=== PATIENT | female | born 1985 | race Caucasian/White ===

== ENCOUNTER 2019-12-07 15:52 | Outpatient (CLI) | payer OTHER, SELFPAY ==
[2019-12-10 16:44] LABS: DHEA-Sulfate 42 mcg/dL (23-266)
[2019-12-11 00:48] LABS: Testosterone Total 33 ng/dL (2-45)
[2019-12-11 06:58] LABS: FSH 1.2 mIU/mL (***); LH 0.8 mIU/mL (***); Progesterone <0.2 ng/mL (***); Prolactin 23.1 ng/mL (***)
[2019-12-13 20:18] LABS: Estradiol, Ultrasensitive 486 pg/mL
== END 2019-12-07 15:53 | disposition home or self-care (01) ==
LOC: ANHLAB 16:00
PROVIDERS: PCP Emergency Medicine; Visit Provider Obstetrics & Gynecology
DX: N93.9 Abnormal uterine and vaginal bleeding, unspecified (principal)
CPT/HCPCS: 36415; 82627; 82670; 83001; 83002; 84144; 84146; 84403; 84443

== ENCOUNTER → 2020-05-14 01:10 | Outpatient (CLI) | payer OTHER, SELFPAY ==
[2020-05-14 19:13] LABS: SARS-CoV-2 RNA PCR Negative
== END ==
PROVIDERS: PCP Emergency Medicine; Visit Provider Obstetrics & Gynecology
DX: Z01.812 Encounter for preprocedural laboratory examination (principal); Z20.822 Contact with and (suspected) exposure to COVID-19
CPT/HCPCS: C9803; U0003; U0005

== ENCOUNTER 2020-05-17 00:16 | Day surgery (SDC) | payer OTHER, SELFPAY ==
[2020-05-05 12:27] VITALS: BMI 39.9
[2020-05-17] VITALS (7 sets, daily range): BP systolic 125–146; BP diastolic 76–108; PULSE 75–93; RESP 14–20; TEMP 36.3; O2SAT 98–100
[2020-05-17] MEDS: ACETAMINOPHEN 500 MG TABLET 1000 MG PO (07:19)
[2020-05-17] MEDS: KETOROLAC 15 MG/ML VIAL (*BKC) IV PUSH (07:20)
[2020-05-17] MEDS: LACTATED RINGERS 1,000 ML 30 ML IV CONT (07:25)
--- NOTE | 2020-05-17 07:54 | P.PNAN_ITS ---
Anes - Initial Pre Proc Eval Procedure: Operation Date: 05/17/20 08:30 Proposed Procedures p Hysteroscopy With Endometrial Biopsy, Polypectomy, Crystal Endometrial Ablation - Rita Christensen MD s Laparoscopic Bilateral Tubal Sterilization with Cautery - Rita Christensen MD Date/Time: 05/17/20 07:54 Surgeon: Rita Christensen MD Pre Op Diagnosis: Lesion Of Endometrium, sterilization Patient Data Age: 35 Gender: F Height: 5 ft 2 in Weight: 99 kg Allergies Allergy/AdvReac Type Severity Reaction Status Date / Time erythromycin base Allergy Blurry Verified 05/17/20 07:51 Vision Home Medications Medication Instructions Recorded Confirmed Type alprazolam 0.25 mg PO PRN PRN 05/05/20 05/17/20 History buspirone 5 mg PO BID 05/05/20 05/17/20 History cholecalciferol (vitamin D3) 125 mcg PO DAILY 05/05/20 05/17/20 History [Vitamin D3] lisinopril 10 mg PO DAILY 05/05/20 05/17/20 History omega-3 fatty acids-vitamin E 1 cap PO DAILY 05/05/20 05/17/20 History [Downey-3 Fish Oil] omeprazole magnesium [Prilosec OTC] 20 mg PO DAILY PRN 05/05/20 05/17/20 History propranolol 10 mg PO BID 05/05/20 05/17/20 History triamterene-hydrochlorothiazid 1 cap PO DAILY 05/05/20 05/17/20 History vitamin E 400 unit PO DAILY 05/05/20 05/17/20 History Patient hx anesthesia problems: none Family hx anesthesia problems: none [facility] Past Medical History Medical History (Updated 05/17/20 @ 07:55 by Jean Echols MD) HTN (hypertension) Hyperlipidemia Morbid obesity Surgical History Surgical History (Updated 05/17/20 @ 07:55 by Jean Echols MD) History of cholecystectomy Social History Social History Smoking status: Never smoker Alcohol intake: current Alcohol use details: SOCIAL - ONE/MONTH Substance use: never Substance use type: does not use Living arrangements: with family Spiritual care concerns: No Anes - Eval Final PreProcedure Day of Procedure 05/17/20 07:54 Patient weight: morbidly obese Heart: regular rate and rhythm Lungs: clear to auscultation Airway: Mallampati scale class III and special considerations poor dentition Neurological: alert and oriented Last oral intake: >/= 8 hours ASA classification: III Emergent: no Anesthetic plan: proceed Anesthesia type and monitoring: general ETT and standard monitoring Other findings: glidescope Informed Consent: The patient's anesthetic plan and its attendant risks and benefits were discussed with the patient/family/POA. Questions were solicited and answers provided to the satisfaction of the patient/family/POA.
--- NOTE | 2020-05-17 08:04 | WPDHPUPDATE1 ---
History and Physical Update Update Date/Time: 05/17/20 08:04 History and Physical has been reviewed, including an updated exam of the patient. There are NO changes in the patient's condition. Risks, benefits, and alternatives have been discussed and questions answered. Patient agrees to proceed with procedure.
--- NOTE | 2020-05-17 09:33 | P.OP_ITS ---
Procedure Note - Detailed Date of procedure: 05/17/20 Pre-op diagnosis: Lesion Of Endometrium, sterilization Post-op diagnosis: same Procedure performed: Laparoscopic bilateral tubal ligation, Endometrial Ablation with hysteroscopy and endometrial curettage. Description of procedure: Patient was taken the operating room. She has prepped draped in the dorsal lithotomy position after induction of general anesthesia. A 5 mm abdominal incision was made in left upper quadrant of the abdomen with scalpel. A 5 mm trocars inserted the intra-abdominal cavity under direct visualization of the scope. Pneumoperitoneum was achieved. A 5 mm pe riumbilical incision was made using a scalpel on the abdominal scan. A 5 mm trocar was inserted the intra-abdominal cavity under visualization of the scope. The fallopian tube was grasped with the bipolar cautery in the ampullary region. It was completely desiccated in a 1.5 cm area of the fallopian tube. This was performed in identical fashion on the contralateral side. The instruments were withdrawn. The pneumoperitoneum was reduced. The trocars were removed. The skin was closed with subcuticular 4 Monocryl. This incisions were covered with Dermabond. Our attention was then turned to the endometrial ablation portion of the procedure. A speculum was placed in the vagina. The cervix was grasped with a tenaculum. The cervix was dilated to approximately 8 mm with Hall dilators. The hysteroscope was inserted. And the below findings were noted. Measurements of the cervix were taken using the uterine sound and the hysteroscope. Curettage was performed using medium curette. The intrauterine cavity measurements were entered into the hand piece of the device. The device was inserted the intrauterine cavity. The array was expanded. The balloon cuff was inflated. The uterus was airtight. The energy and safety cycles within initiated. They were completed under 3 minutes. The balloon cuff was collapsed, the array was collapsed, and the device was removed the uterine cavity. the hysteroscope was reinserted and the cavity was well desiccated, it was clearly observed. Hysteroscope was withdrawn. The tenaculum was removed. The speculum was removed. The patient tolerated the procedure well. She was taken to recover room in stable condition. Anesthesia: GETA Surgeon: Rita Christensen MD Estimated blood loss (mL): 10 Drains: No Packing: No Pathology: none sent Complications: No immediate complications Condition: stable Disposition: PACU Findings: Normal female pelvic anatomy.Thickened endometrium with possible small polypoid structures posteriorly -- removed easily with curretage
== END 2020-05-17 10:45 | disposition home or self-care (01) ==
PROVIDERS: PCP Emergency Medicine; Visit Provider Obstetrics & Gynecology
PROC: 0U5B8ZZ Destruction of Endometrium, Via Natural or Artificial Opening Endoscopic (ICD-10-PCS; CPT 58563; principal; 2020-05-17 08:30)
PROC: (CPT 58671; 2020-05-17 08:30)
DX: N85.8 Other specified noninflammatory disorders of uterus (principal); Z30.2 Encounter for sterilization; I10 Essential (primary) hypertension; E78.5 Hyperlipidemia, unspecified; E66.01 Morbid (severe) obesity due to excess calories; Z68.39 Body mass index [BMI] 39.0-39.9, adult
CPT/HCPCS: 58670; 58563; 88305; A9270; C9803; J0330; J1100; J1885; J2250; J2405; J2704; J3010; J7030; J7120; U0003; U0005

== ENCOUNTER 2022-03-06 10:08 | Outpatient (CLI) | payer BC, SELFPAY ==
--- NOTE | 2022-03-06 11:00 | NEURO_ITS ---
Impression: # Complains of numbness of hands. # Normal nerve conduction study. # No Carpal Tunnel Syndrome or ulnar neuropathy. # Normal needle/EMG exam. Motor Nerve Conduction Upper Extremities Median Nerve Conduction Velocity (m/sec) Terminal Latency (msec) Response Voltage(mV) Elbow-Wrist Wrist Elbow Wrist Right 65 3.0 3 4 Left 65 2.7 3 4 Ulnar Nerve Conduction Velocity (m/sec) Terminal Latency (msec) Response Voltage(mV) Above Elbow Below Elbow Wrist Above Elbow Below Elbow Wrist Right 59 2.1 4 6 Left 59 2.1 5 6 F-Wave Latency Median (ms) Ulnar (ms) Right 26.2 25.4 Left 25.9 25.3 Sensory Nerve Conduction Upper Extremities Median Nerve Stimulation Terminal Latency (msec) Wrist/Digit Response Voltage (uV) Wrist Right 2.7/2.5 99/80 Left 2.5/2.4 76/72 Ulnar Nerve Stimulation Terminal Latency (msec) Wrist/Digit Response Voltage (uV) Wrist Right 2.1 51 Left 2.1 62 Radial Nerve Terminal Latency (msec) Response Voltage(mV) Right 1.8 28 Left 1.7 22 Left Right Muscles Examined Fibrillation Fasciculation Scarcity Voltage Duration Left Right Left Right Left Right Left Right Left Right Deltoid Biceps X X Brachioradialis Triceps X X Pronator Teres X X Ext Indicis X X Ext Digitorum X X Abd Poll Brev X X 1st Dorsal Interosseus Paraspinals MTDD
== END 2022-03-06 10:09 | disposition home or self-care (01) ==
PROVIDERS: PCP Emergency Medicine; Visit Provider Psychiatry & Neurology Neurology
DX: R20.0 Anesthesia of skin (principal)
CPT/HCPCS: 95886; 95911

== ENCOUNTER 2022-05-10 08:15 | Outpatient (CLI) | payer BC, SELFPAY ==
--- NOTE | ~2022-05-10 | XR_ITS ---
Right Forearm AP and lateral views of the right forearm were performed. Clinical History: Pain and swelling Findings: No fracture or dislocation is seen. Osseous alignment in anatomic. Joint spaces are prese rved. Soft tissues are unremarkable. Impression: Unremarkable exam. Reviewed, dictated and finalized at location . Impression: Unremarkable exam.
--- NOTE | ~2022-05-10 | US_ITS ---
EXAMINATION: US arterial duplex [facility] DATE: 05/10/2022 10:36 INDICATION: Bilateral upper limb pain and swelling TECHNIQUE: Multiple grayscale and Doppler ultrasound images of the arteries of the bilateral upper li mbs were obtained. COMPARISON: None FINDINGS: Normal low-resistance arterial waveform with brisk systolic upstroke at the left common carotid arter y. Triphasic waveforms with brisk systolic upstrokes at the left subclavian, axillary, brachial, radi al and ulnar arteries. Normal low-resistance arterial waveform with brisk systolic upstroke at the ri [facility] common carotid artery. Triphasic waveforms with brisk systolic upstrokes at the right subclavian, axillary, brachial, radial and ulnar arteries. IMPRESSION: 1. Normal triphasic waveforms and brisk systolic upstrokes throughout the arteries of the left and ri t upper limbs. Reviewed, dictated and finalized at location L. IMPRESSION: 1. Normal triphasic waveforms and brisk systolic upstrokes throughout the arter ies of the left and right upper limbs.
--- NOTE | ~2022-05-10 | US_ITS ---
EXAMINATION: US venous doppler UE DATE: 05/10/2022 10:29 INDICATION: 2-3 months of pain and swelling at the bilateral upper extremities. TECHNIQUE: Grayscale images without and with compression and Doppler images of the bilateral upper ex tremity veins were obtained. COMPARISON: None. FINDINGS: The right internal jugular vein, subclavian vein, axillary vein, brachial vein, basilic vein, cephali c vein, radial vein, and ulnar vein are patent. The left internal jugular vein, subclavian vein, axillary vein, brachial vein, basilic vein, cephalic vein, radial vein, and ulnar vein are patent. IMPRESSION: 1. Patent bilateral upper extremity veins. No evidence of venous thrombosis. Reviewed, dictated and finalized at location L.
--- NOTE | ~2022-05-10 | XR_ITS ---
Left Forearm AP and lateral views of the left forearm were performed. Clinical History: Pain and swelling Findings: No fracture or dislocation is seen. Osseous alignment in anatomic. Joint spaces are prese rved. Soft tissues are unremarkable. Impression: Unremarkable exam. Reviewed, dictated and finalized at location . Impression: Unremarkable exam.
--- NOTE | ~2022-05-10 | XR_ITS ---
Cervical Spine: AP, lateral, open-mouth views Clinical History: Pain Findings: The normal lordotic curve is maintained. The vertebral bodies and posterior elements appea r intact. The intervertebral disc spaces are well maintained. Pre-vertebral soft tissues are unremar kable. Impression: No significant abnormality is seen. Reviewed, dictated and finalized at [facility]. Impression: No significant abnormality is seen.
== END 2022-05-10 08:16 | disposition home or self-care (01) ==
PROVIDERS: PCP Emergency Medicine; Visit Provider Emergency Medicine
DX: M79.89 Other specified soft tissue disorders (principal)
CPT/HCPCS: 72050; 73090; 93930; 93970